=== PATIENT | female | born 2000 | race American Indian/Alaskan Native ===

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

== ENCOUNTER 2020-07-29 17:03 | Emergency (ER) | payer OTHER ==
[~2020-07-29] VITALS: Ht 157.5 cm; Wt 88.0 kg
[2020-07-29] MEDS ORDERED: PRENATALES (17:46)
== END 2020-07-29 23:45 | disposition home or self-care (01) ==
LOC: ER 17:03
DX: O26.892 Other specified pregnancy related conditions, second trimester (principal); K52.89 Other specified noninfective gastroenteritis and colitis; Z3A.14 14 weeks gestation of pregnancy

== ENCOUNTER 2020-10-01 14:12 | Emergency (ER) | payer OTHER ==
[~2020-10-01] VITALS: Ht 157.5 cm; Wt 90.3 kg
[~2020-10-01 14:12] MED LIST: PRENATALES
[2020-10-01] MEDS ORDERED: ZITHROMAX500 MG PO (17:52)
== END 2020-10-01 18:02 | disposition home or self-care (01) ==
LOC: ER 14:12
DX: O98.512 Other viral diseases complicating pregnancy, second trimester (principal); U07.1 COVID-19; Z3A.20 20 weeks gestation of pregnancy

== ENCOUNTER 2020-10-24 14:22 | Outpatient (CLI) | payer OTHER ==
[~2020-10-24 14:22] MED LIST changes: +ZITHROMAX500 MG PO
== END 2020-10-25 22:19 | disposition home or self-care (01) ==
LOC: OBS/DEL 14:22
PROVIDERS: ATTEND Obstetrics & Gynecology
DX: O60.02 Preterm labor without delivery, second trimester (principal)

== ENCOUNTER 2020-12-22 09:55 | Inpatient (IN) | payer OTHER ==
[~2020-12-22] VITALS: Ht 157.5 cm; Wt 2.7 kg
[2020-12-22] MEDS ORDERED: PRENATABS RX T1 EACH PO (10:33)
== END 2020-12-24 16:50 | disposition home or self-care (01) | DRG 788 ==
LOC: LDR 09:55 → OB/GYN 09:55 → O/R 09:55 → OB/GYN 15:28
PROVIDERS: ADMIT Obstetrics & Gynecology; ATTEND Obstetrics & Gynecology
PROC: 4A1HXFZ Monitoring of Products of Conception, Cardiac Rhythm, External Approach (ICD-10-PCS; 2020-12-22)
PROC: 10D00Z1 Extraction of Products of Conception, Low, Open Approach (ICD-10-PCS; principal; 2020-12-22 10:00)
DX: O65.5 Obstructed labor due to abnormality of maternal pelvic organs (principal); O34.211 Maternal care for low transverse scar from previous cesarean delivery; O42.013 Preterm premature rupture of membranes, onset of labor within 24 hours of rupture, third trimester; O99.824 Streptococcus B carrier state complicating childbirth; Z3A.35 35 weeks gestation of pregnancy; Z37.0 Single live birth; Z20.822 Contact with and (suspected) exposure to COVID-19

== ENCOUNTER 2021-01-20 20:58 | Emergency (ER) | payer OTHER ==
[~2021-01-20] VITALS: Ht 157.5 cm; Wt 83.9 kg
[~2021-01-20 20:58] MED LIST changes: +PRENATABS RX T1 EACH PO
[2021-01-20] MEDS ORDERED: ZITHROMAX500 MG PO (22:55)
== END 2021-01-20 23:50 | disposition home or self-care (01) ==
LOC: ER 20:58
DX: R09.81 Nasal congestion (principal); R05 Cough; J00 Acute nasopharyngitis [common cold]; B96.0 Mycoplasma pneumoniae [M. pneumoniae] as the cause of diseases classified elsewhere

== ENCOUNTER 2021-02-22 02:15 | Emergency (ER) | payer OTHER ==
[~2021-02-22] VITALS: Ht 157.5 cm; Wt 88.5 kg
[2021-02-22] MEDS ORDERED: PEPCID40 MG PO (05:27)
[2021-02-22] MEDS ORDERED: ZOFRAN8 MG PO (05:27)
== END 2021-02-22 05:38 | disposition home or self-care (01) ==
LOC: ER 02:15
DX: R11.11 Vomiting without nausea (principal)

== ENCOUNTER 2021-04-15 12:04 | Emergency (ER) | payer OTHER ==
[~2021-04-15] VITALS: Ht 157.5 cm; Wt 86.6 kg
[~2021-04-15 12:04] MED LIST changes: +PEPCID40 MG PO; +ZOFRAN8 MG PO
[2021-04-15] MEDS ORDERED: DUI500 PO (16:17)
== END 2021-04-15 16:25 ==
LOC: ER 12:04
DX: N39.0 Urinary tract infection, site not specified (principal); N91.1 Secondary amenorrhea; E86.0 Dehydration; R53.1 Weakness